=== PATIENT | female | born 1960 | race Caucasian/White ===

== ENCOUNTER 2020-08-27 18:34 | Emergency (ER) | payer OTHER, SELFPAY ==
[2018-03-08 07:21] VITALS: BMI 15.3
[2020-08-27 18:34] VITALS: BP 113/74; PULSE 105; RESP 14; TEMP 36.5; O2SAT 98; BMI 16.0
--- NOTE | 2020-08-27 19:27 | RAD_ITS ---
HISTORY: Trauma, injury/Pain EXAMINATION/TECHNIQUE: XR Tibia/Fibula 2 Views: COMPARISON: Left knee series same date FINDINGS: BONES/JOINTS: Lucency through the medial aspect of the medial tibial plateau seen on the AP view and consistent with nondisplaced fracture. Preservation of the joint spaces. No sclerotic or destructive changes observed. SOFT TISSUES: No soft tissue swelling or gas. No radiopaque foreign body. RAD/Tibia & Fibula 2 Views IMPRESSION: Fracture of the medial tibial plateau. at 2059 Reported and signed by: Cabrear Santana MD Electronically Signed: Cabrera Santana MD at 20:58 EDT Tel , Service support ,
--- NOTE | 2020-08-27 19:27 | RAD_ITS ---
HISTORY: Trauma, injury/Pain EXAMINATION/TECHNIQUE: XR Knee Complete 4 Views or More: COMPARISON: Left tibia fibula series FINDINGS: BONES/JOINTS: Nondisplaced fracture medial tibial plateau better seen on images of the tibia and fibula. Preservation of the joint spaces. No sclerotic or destructive changes observed. SOFT TISSUES: Associated hemarthrosis identifiable on the sunrise view. No radiopaque foreign body. RAD/Knee 4 or More Views IMPRESSION: Nondisplaced medial tibial plateau fracture with hemarthrosis. at 2057 Reported and signed by: Cabrera Santana MD Electronically Signed: Cabrera Santana MD at 20:56 EDT Tel , Service support ,
[2020-08-27] MEDS: Morphine 4 MG/ML Syringe IM (19:32)
[2020-08-27] MEDS: Morphine 4 MG/ML Syringe IV (21:31)
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
[2020-08-27] MEDS: Ibuprofen 600 MG Tablet PO (23:47)
[2020-08-27 23:48] VITALS: BP 101/82; PULSE 92; RESP 14; O2SAT 96
[2020-08-27] MEDS: oxyCODONE 5 MG Tablet PO (23:48)
== END 2020-08-27 23:50 | disposition home or self-care (01) ==
PROVIDERS: Emergency Provider Emergency Medicine; PCP Family Medicine
DX: S82.142A Displaced bicondylar fracture of left tibia, initial encounter for closed fracture (principal); F17.210 Nicotine dependence, cigarettes, uncomplicated; F32.9 Major depressive disorder, single episode, unspecified; V28.0XXA Motorcycle driver injured in noncollision transport accident in nontraffic accident, initial encounter; Z79.899 Other long term (current) drug therapy
CPT/HCPCS: 73564; 73590; 96372; 96374; 99285; A4216

== ENCOUNTER → 2020-09-10 08:00 | Outpatient (CLI) | payer OTHER, SELFPAY ==
[2020-08-27 18:34] VITALS: BMI 16.0
--- NOTE | 2020-09-10 08:03 | CT_ITS ---
STUDY: CT LEFT KNEE WITHOUT CONTRAST REASON FOR EXAM: Left knee pain, left knee injury with medial tibial plateau fracture. TECHNIQUE: Transaxial CT imaging of the knee was performed. Coronal and sagittal images were reformatted. Individualized dose optimization techniques were used for this CT. COMPARISON: Radiographs 08/27/2020. FINDINGS: There is a minimally displaced medial tibial plateau fracture without articular step-off (coronal reconstructions 27-39) extending across the midline into the anterior aspect of the lateral tibial plateau (coronal reconstructions 40, 41; axial images 63-68). There is no demonstrated distal femoral fracture or patellar fracture. There is a small enthesophyte at the superior pole of the patella. The joint spaces are well-maintained. Normal proximal tibiofibular articulation. There is a moderate-sized lipohemarthrosis. The quadriceps tendon is grossly normal. The patellar tendon is grossly normal. Normal Hoffa''s fat pad. There is mild soft tissue swelling. CT/Extremity Lower without Contra IMPRESSION: Minimally displaced fracture of the medial tibial plateau extending across the midline into the anterior aspect of the lateral tibial plateau. Lipohemarthrosis. Electronically Signed: Eric Green MD at 10:31 EDT Tel , Service support ,
== END ==
LOC: CT 08:02
PROVIDERS: PCP Family Medicine; Referring Provider Specialist; Visit Provider Specialist
DX: S82.132A Displaced fracture of medial condyle of left tibia, initial encounter for closed fracture (principal)
CPT/HCPCS: 73700

== ENCOUNTER 2020-12-24 17:00 | Outpatient (RCR) | payer OTHER, SELFPAY ==
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
--- NOTE | 2020-11-17 15:00 | HP.PTREVAL_ITS ---
Dr. Andre Faustin MD, It has been my pleasure to treat CARLOZ GUERRERO over the last 4 visits for Left Medial Plateau Fracture. Please see the progress note below for an update on the physical therapy plan of care! Subjective: Pt. reports overall doing better. She is still using crutches with PWBing on her LLE. Pt. reports being HEP compliant with ROM, but not much else. She is to follow up with physician next week. pt. hopeful to get back to all activities without limitations. Objective/Function: ROM: AROM: 0-2-121deg. PROM: 0-0-125deg. Pt. reports mild tenderness at further flexion and extension MMT: Pt. has general 4/5 strength throughout LLE. PT. has marked fatigue with SLR and hip abd testing. I encouraged her to complete both of these movements in preperation for full WBing. MMT: RLE: ankle 5/5 throughout; knee: ext 4+/5, flexion 4+/5; hip- flexion 4/5, abd 4+/5, ext 4+/5. Pt. reported no issues with MMT this date. GAIT: Pt. is ambulating well with PWBing on her LLE. Pt. has improved knee ext, (still lacking) during stance phase with slight increase in off loading. Pt. reports no pain with gait. Plan Plan: Pt. to follow up with physician next week for re assessment. pt. is progressing with strengthening. I did talk to her about increasing her consistency with [facility] strengthening . Pt. consents. Pt. if hopeful to have improved WBing status. Progress per physician guidence. Balance/Gait/Functional tests - Balance/Special Test Scores Lower Extremity Functional Score: 40 Goals Goal 1:: Patient will be I with HEP and progression Goal Time Frame: 4-6 Weeks Goal Progress: Progressing Goal 2:: Patient will ambulate >300 feet with a normalized gait pattern when cleared to FWB Goal Time Frame: 4-6 Weeks Goal Progress: Progressing Goal 3:: Patient will asc/desc 8 stairs recip with no HR when cleared to FWB Goal Time Frame: 4-6 Weeks Goal Progress: Progressing Goal 4:: Patient will demo 0-130 degrees of knee ROM Goal Time Frame: 4-6 Weeks Goal Progress: Progressing Anticipated Interventions Patient/Client Instruction: Educate patient on: Benefits of Fitness Program Therapeutic Exercise to Include: Strength training, Endurance training, Balance training, Agility training, Body mechanics, Postural training, Flexibilty training, Gait and locomotor training, Passive ROM, Active ROM, Scapular Strength/Stabilization For the Purpose of:: To improve muscle performance and motor function Please do not hesitate to contact me at [phone] by phone or if you have questions or concerns regarding this new plan of care! Sincerely, Ermias Pacheco DPT
--- NOTE | 2021-02-23 07:51 | HP.PT.NRP ---
CARLOZ GUERRERO was seen in my office for initial evaluation on 10/15/20. The following Plan of Care was established for this patient: Initial Frequency: 1x/Week Initial Duration: 4 Weeks Patient/Client Instruction: Educate patient on: Benefits of Fitness Program Therapeutic Exercise to Include: Strength training, Endurance training, Balance training, Agility training, Body mechanics, Postural training, Flexibilty training, Gait and locomotor training, Passive ROM, Active ROM, Scapular Strength/Stabilization For the Purpose of:: To improve muscle performance and motor function This patient was last seen in our office . Pertinent comments regarding their Physical therapy will appear below: Patient has not attended PT in over 30 days- appropriate for d/c and return to MD for further evaluation as needed. At this point I will be discontinuing this patient from physical therapy. I would be happy to see this patient again in the future if found appropriate by the physician. Thank you! Marisol Maya, ZOHREHT Balance/Gait/Functional tests - Balance/Special Test Scores Lower Extremity Functional Score: 40
== END 2020-12-24 19:00 | disposition home or self-care (01) ==
LOC: PT 17:00
PROVIDERS: PCP Family Medicine; Referring Provider Specialist; Visit Provider Specialist
DX: S82.135D Nondisplaced fracture of medial condyle of left tibia, subsequent encounter for closed fracture with routine healing (principal)
CPT/HCPCS: 97110; 97162; 97164

== ENCOUNTER 2022-07-19 15:30 | Outpatient (RCR) | payer OTHER, SELFPAY ==
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
--- NOTE | 2022-09-13 14:21 | HP.PTDCNRP_ITS ---
Patient Information Patient Information: CARLOZ GUERRERO was seen in my office for initial evaluation on 05/13/22. The following Plan of Care was established for this patient: POC Established Initial Frequency: 2x /Week Initial Duration: 3 Months Anticipated Interventions Patient/Client Instruction: Educate patient on: Condition and Plan of Care For the Purpose of:: To decrease pain, To increase ROM, To improve nutrient delivery to tissue, To improve muscle performance and motor function, To increase tolerance to activity/condition/position and To improve ability of phy sical actions for home/community/work/leisure Therapeutic Exercise to Include: Strength training, Flexibilty training, Gait and locomotor training, Passive ROM and Active ROM For the Purpose of:: To decrease pain, To increase ROM, To improve nutrient delivery to tissue, To improve muscle performance and motor function, To increase tolerance to activity/condition/position, To improve ability of physical actions for home/community/work/leisure and To improve gait and locomotor functions Last Seen Last Seen: This patient was last seen in our office 07/19/22. Pertinent comments regarding their Physical therapy will appear below: Pt seen 3 visits of POC and worked to I with gym ex and home ankle exercise. Did not wish to return for more therapy. Will discontinue at this time. At this point I will be discontinuing this patient from physical therapy. I would be happy to see this patient again in the future if found appropriate by the physician. Thank you! Marciano Gibbs, DPT, OCS, CSCS Balance/Gait/Functional tests Balance/Special Test Scores Lower Extremity Functional Score: 68
== END 2022-07-19 19:00 | disposition home or self-care (01) ==
LOC: PT 15:30
PROVIDERS: PCP Family Medicine; Referring Provider Orthopaedic Surgery; Visit Provider Orthopaedic Surgery
DX: S82.121D Displaced fracture of lateral condyle of right tibia, subsequent encounter for closed fracture with routine healing (principal)
CPT/HCPCS: 97110; 97161; 97164